=== PATIENT | female | born 1995 | race Asian ===

== ENCOUNTER 2017-10-19 09:57 | Emergency (ER) | payer OTHER ==
[~2017-10-19] VITALS: Ht 152.4 cm; Wt 48.5 kg
[2017-10-19 10:05] VITALS: Ht 152.4 cm; Wt 48.5 kg
[2017-10-19 13:13] VITALS: BP 113/74
== END 2017-10-19 13:13 | disposition home or self-care (01) ==
LOC: ED 09:57
DX: S29.012A Strain of muscle and tendon of back wall of thorax, initial encounter (principal); S90.01XA Contusion of right ankle, initial encounter; V49.9XXA Car occupant (driver) (passenger) injured in unspecified traffic accident, initial encounter; Y93.89 Activity, other specified; Y92.89 Other specified places as the place of occurrence of the external cause; Y99.8 Other external cause status
CPT/HCPCS: 72072; Q0162